=== PATIENT | female | born 1965 | race Caucasian/White ===

== ENCOUNTER → 2016-10-06 | Outpatient (CLI) | payer OTHER ==
[~2016-10-06] MED LIST: ALBUAER2 INH; FLVHFA110 INH; TRIA3AER NAE
--- NOTE | 2016-10-07 08:01 | MAMMOGRAPHY REPORT ---
BILATERAL DIGITAL SCREENING MAMMOGRAM TOMOSYNTHESIS WITH CAD: 10/06/2016 CLINICAL HISTORY: Routine screening. Patient has no complaints. TECHNIQUE: Breast tomosynthesis in addition to standard 2D mammography was performed. Current study was also evaluated with a Computer Aided Detection (CAD) system. COMPARISON: Comparison is made to exams dated: 10/03/2015 mammogram, 09/29/2014 mammogram, 08/03/2013 mamm ogram, 08/02/2012 mammogram, 07/15/2011 mammogram, and 07/11/2010 mammogram - [facility] BREAST COMPOSITION: The tissue of both breasts is heterogeneously dense, which may obscure small mas ses. FINDINGS: The parenchymal pattern is unchanged. No developing mass, architectural distortion or clus ter of suspicious microcalcifications is seen in either breast. IMPRESSION: ACR BI-RADS CATEGORY 2: BENIGN There is no mammographic evidence of malignancy. A 1 year screening mammogram is recommended. The pa tient will receive written notification of the results. Approximately 10% of breast cancers are not detected with mammography. A negative mammographic report should not delay biopsy if a clinically suggestive mass is present. Elizabeth Ordaz M.D. ay/:10/06/2016 15:34:43 Special Service Representative: Asha GALVEZ(Rahul)(Lia), [facility] letter sent: Normal 1/2 BI-RADS Code: ACR BI-RADS Category 2: Benign
== END | disposition home or self-care (01) ==
LOC: C.MAMM 10:04
PROVIDERS: ATTEND Obstetrics & Gynecology
DX: Z12.31 Encounter for screening mammogram for malignant neoplasm of breast (principal)

== ENCOUNTER → 2017-06-16 | Outpatient (CLI) | payer OTHER | END | disposition home or self-care (01) | LOC: C.PAPS 16:43 | PROVIDERS: ATTEND Obstetrics & Gynecology | DX: Z01.419 Encounter for gynecological examination (general) (routine) without abnormal findings (principal) ==

== ENCOUNTER 2017-12-13 04:56 | Emergency (ER) | payer OTHER ==
[~2017-12-13] VITALS: Ht 157.5 cm; Wt 52.9 kg
[2017-12-13 05:00] VITALS: TEMP 37.4; Ht 157.5 cm; Wt 52.9 kg
[2017-12-13] MEDS ORDERED: SODIUM CHLORIDE 0.9% 1000ML 1,000 ML IV STA (05:09)
[2017-12-13] MEDS ORDERED: KETOROLAC TROMETHAMINE 30 MG/ML VIAL IV STA (05:09)
[2017-12-13] MEDS ORDERED: LORAZEPAM 2 MG/ML 1 ML VIAL IV STA (05:09)
[2017-12-13 05:10] VITALS: O2SAT 99
[2017-12-13 05:31] LABS: BASO % 0.3 %; BASO ABS # 0.03 K/uL (0-0.2); EOS % 4.5 %; EOS ABS # 0.48 K/uL (0-0.5); HEMATOCRIT 42.3 % (37-47); HEMOGLOBIN 14.8 g/dL (12.0-16.0); IG# 0.05 K/uL (0.00-0.02); LYMPH % 36.6 %; LYMPH ABS # 3.93 K/uL (1.2-3.4); MEAN CORPUSCULAR HEMOGLOBIN 31.8 pg (25-34); MEAN PLATELET VOLUME 9.6 fL (7.4-10.4); MONO % 8.8 %; MONO ABS # 0.95 K/uL (0.11-0.59); NEUT % 49.3 %; PLATELET COUNT 295 K/uL (130-400); RED CELL DISTRIBUTION WIDTH CV 12.3 % (11.5-14.5); RED CELL DISTRIBUTION WIDTH SD 40.9 fL (36.4-46.3); WHITE BLOOD COUNT 10.74 K/uL (4.8-10.8)
[2017-12-13] MEDS ORDERED: OPTIRAY 320 IV PRN (05:45)
[2017-12-13] MEDS ORDERED: LOSA50TA6 PO (05:46)
[2017-12-13] MEDS ORDERED: CLR10 PO (05:47)
[2017-12-13] MEDS ORDERED: VNTHFA/IN INH (05:48)
[2017-12-13 05:56] LABS: ALBUMIN 3.6 gm/dl (3.4-5.0); ALKALINE PHOSPHATASE 71 U/L (45-117); ALT/SGPT 42 U/L (12-78); AST/SGOT 29 U/L (15-37); BLOOD UREA NITROGEN 14 mg/dl (7-18); CALCIUM 9.2 mg/dl (8.5-10.1); CARBON DIOXIDE 23 mmol/L (21-32); CREATININE 0.96 mg/dl (0.60-1.20); GLUCOSE 110 mg/dl (70-99); LIPASE 224 U/L (73-393); POTASSIUM 3.5 mmol/L (3.5-5.1); SODIUM 139 mmol/L (136-145)
[2017-12-13] MEDS ORDERED: CEFTRIAXONE SOD INJ 1 GM ADDVIAL IV STA (06:58)
[2017-12-13] MEDS ORDERED: AZITHROMYCIN 250 MG TAB PO STA (06:58)
--- NOTE | 2017-12-13 07:07 | EMERGENCY ROOM VISIT NOTE ---
History First contact with patient: 04:59 Chief Complaint: BACK PAIN Stated Complaint: SEVERE BACK PAIN History of Present Illness The patient is a 52 year old female who presents to the Emergency Room with complaints of severe sudden onset of left upper back pain described as aching, ranging in severity 8 out of 10 that feels like spasms. She states is hard to catch her breath. Patient just flew back from [facility]. She has been traveling recently. There is a family history of heart disease. No blood clots in the family. Patient denies anterior chest pain, abdominal pain, leg pain or swelling, urinary problems, injury to the area, flulike illness. No history of kidney stones. No history of blood clots. She is not on hormone replacement. She does not smoke. Patient states last week she was feeling fatigued with cold symptoms and went to urgent care. No known tick bites. Review of Systems An 10 system review of systems was completed with positives and pertinent negatives listed in the HPI. Past Medical/Surgical History Medical Problems: (1) Asthma (2) Intrauterine Neck surgery Social History Smoking Status: Never Smoker Marital Status: Housing Status: lives with family Occupation Status: other Current/Historical Medications Scheduled Loratadine (Claritin), 10 MG PO DAILY Losartan Potassium (Cozaar), 50 MG PO DAILY Scheduled PRN Albuterol Hfa (Ventolin Hfa), 2 PUFFS INH Q6H PRN for SOB/Wheezing Fluticasone Propionate (Flovent Hfa), 2 PUFFS INH BID PRN for Asthma Symptoms Physical Exam Vital Signs Date Time Temp Pulse Resp B/P (MAP) Pulse Ox O2 Delivery O2 Flow Rate FiO2 12/13/17 06:01 118 145/99 99 Room Air 12/13/17 05:56 113 99 12/13/17 05:41 120 21 100 Room Air 12/13/17 05:31 156/106 12/13/17 05:11 120 12/13/17 05:10 99 Room Air 12/13/17 05:10 Room Air 12/13/17 05:06 168/113 12/13/17 05:00 37.4 129 20 176/112 98 Room Air Physical Exam VITALS: Vitals are noted on the nurse's note and reviewed by myself. Vital signs hypertensive. GENERAL: White female anxious appearing, in no acute distress, nondiaphoretic, well-developed well-nourished. SKIN: The skin was without rashes, erythema, edema, or bruising. There is no tenting of the skin. Capillary reflex less than 2 seconds. HEAD: Normocephalic atraumatic. EARS: External auditory canals clear, tympanic membranes pearly shaw without erythema or effusion bilaterally. EYES: Pupils equal round and reactive to light and accommodation. Conjunctivae without injection, sclerae without icterus. Extraocular movements intact. NOSE: Patent, turbinates without inflammation or discharge. No sinus tenderness. MOUTH: Mucous membranes moist. Pharynx without erythema or exudate. Uvula midline. Airway patent. Tongue does not deviate. NECK: Supple without nuchal rigidity. No lymphadenopathy. No thyromegaly. Cervical spine is nontender. No JVD. HEART: Tachycardic rate and rhythm without murmurs gallops or rubs. LUNGS: Clear to auscultation bilaterally without wheezes, rales or rhonchi. No retractions or accessory muscle use. ABDOMEN: Positive bowel sounds x 4. Normal tympanic percussion. Soft, nontender, without masses or organomegaly. Tolentino sign negative. No guarding or rebound tenderness. No CVA tenderness MUSCULOSKELETAL: No muscle atrophy, erythema, or edema noted. No thoracic or lumbar tenderness on exam. NEURO: Patient was alert and oriented to person place and time. Normal sensation to light and sharp touch. No focal neurological deficits. Medical Decision & Procedures Laboratory Results 12/13/17 05:10 Red Blood Count 4.65, Mean Corpuscular Volume 91.0, Mean Corpuscular Hemoglobin 31.8, Mean Corpuscular Hemoglobin Concent 35.0, Mean Platelet Volume 9.6, Neutrophils (%) (Auto) 49.3, Lymphocytes (%) (Auto) 36.6, Monocytes (%) (Auto) 8.8, Eosinophils (%) (Auto) 4.5, Basophils (%) (Auto) 0.3, Neutrophils # (Auto) 5.30, Lymphocytes # (Auto) 3.93, Monocytes # (Auto) 0.95, Eosinophils # (Auto) 0.48, Basophils # (Auto) 0.03 12/13/17 05:10 Test 12/13/17 05:10 12/13/17 05:22 12/13/17 05:25 12/13/17 06:24 White Blood Count 10.74 K/uL (4.8-10.8) Red Blood Count 4.65 M/uL (4.2-5.4) Hemoglobin 14.8 g/dL (12.0-16.0) Hematocrit 42.3 % (37-47) Mean Corpuscular Volume 91.0 fL (80-100) Mean Corpuscular Hemoglobin 31.8 pg (25-34) Mean Corpuscular Hemoglobin Concent 35.0 g/dl (32-36) Platelet Count 295 K/uL (130-400) Mean Platelet Volume 9.6 fL (7.4-10.4) Neutrophils (%) (Auto) 49.3 % Lymphocytes (%) (Auto) 36.6 % Monocytes (%) (Auto) 8.8 % Eosinophils (%) (Auto) 4.5 % Basophils (%) (Auto) 0.3 % Neutrophils # (Auto) 5.30 K/uL (1.4-6.5) Lymphocytes # (Auto) 3.93 K/uL (1.2-3.4) Monocytes # (Auto) 0.95 K/uL (0.11-0.59) Eosinophils # (Auto) 0.48 K/uL (0-0.5) Basophils # (Auto) 0.03 K/uL (0-0.2) RDW Standard Deviation 40.9 fL (36.4-46.3) RDW Coefficient of Variation 12.3 % (11.5-14.5) Immature Granulocyte % (Auto) 0.5 % Immature Granulocyte # (Auto) 0.05 K/uL (0.00-0.02) Anion Gap 11.0 mmol/L (3-11) Est Creatinine Clear Calc Drug Dose 54.9 ml/min Estimated GFR () 79.4 Estimated GFR (Non- 68.5 BUN/Creatinine Ratio 14.5 (10-20) Calcium Level 9.2 mg/dl (8.5-10.1) Total Bilirubin 0.4 mg/dl (0.2-1) Aspartate Amino Transf (AST/SGOT) 29 U/L (15-37) Alanine Aminotransferase (ALT/SGPT) 42 U/L (12-78) Alkaline Phosphatase 71 U/L (45-117) Total Creatine Kinase 57 U/L (26-192) Troponin I < 0.015 ng/ml (0-0.045) Total Protein 8.0 gm/dl (6.4-8.2) Albumin 3.6 gm/dl (3.4-5.0) Lipase 224 U/L (73-393) Bedside D-Dimer > 450 ng/mlFEU (0-450) Bedside Troponin I < 0.030 ng/ml (0-0.045) Urine Color YELLOW Urine Appearance CLEAR (CLEAR) Urine pH 5.0 (4.5-7.5) Urine Specific [place] 1.012 (1.000-1.030) Urine Protein NEG (NEG) Urine Glucose (UA) NEG (NEG) Urine Ketones NEG (NEG) Urine Occult Blood NEG (NEG) Urine Nitrite NEG (NEG) Urine Bilirubin NEG (NEG) Urine Urobilinogen NEG (NEG) Urine Leukocyte Esterase NEG (NEG) Medications Administered Medications (Trade) Dose Ordered Sig/Sriram Route Start Time Stop Time Status Last Admin Dose Admin Ketorolac Tromethamine (Toradol Inj) 10 mg NOW STAT IV 12/13/17 05:09 12/13/17 05:12 DC 12/13/17 05:26 10 MG Lorazepam (Ativan Inj) 0.5 mg NOW STAT IV 12/13/17 05:09 12/13/17 05:12 DC 12/13/17 05:25 0.5 MG Sodium Chloride 1,000 ml @ 999 mls/hr Q1H1M STAT IV 12/13/17 05:09 12/13/17 06:09 DC 12/13/17 05:23 999 MLS/HR ED Course Prior records/ancillary studies reviewed. Triage Nursing notes reviewed. Additional history obtained from family. The patient's history was concerning for left upper back pain. Differential diagnosis: Etiologies such as musculoskeletal, cardiac, pulmonary, PE, disc herniation, fracture, aortic disease, metastatic disease, cord compression, discitis, infection, renal colic, gastrointestinal, acute exacerbation of chronic back pain, sciatica, cauda equina, as well as others were entertained. Physical findings: As above. No focal neurologic findings noted. ER treatment provided: Toradol, Ativan, IV fluids On reassessment the patient felt better. Diagnostics interpreted by me: EKG: Normal sinus, occasional PVC, no acute ST-T wave changes, rate of 125. Impression sinus tachycardia with occasional PVC interpreted by myself I think arrhythmia is unlikely. EKG shows normal sinus rhythm with no interval abnormalities such as QT prolongation or WPW. There are no findings to suggest Brugada syndrome. Cardiac monitoring in the emergency department reveals no tachycardic or bradycardic dysrhythmia. Hypertrophic cardiomyopathy was considered but there are no clear historical elements pointing toward this. EKG is not suggestive. The QRS voltage is not extremely large and there are no suggestive Q waves. The labs revealed elevated d-dimer. Negative troponin. Imaging studies: Chest x-ray with no acute consolidation, pneumothorax free of my interpretation CTA CHEST: Breathing motion artifact limits evaluation of small peripheral vessels. No central PE. 3 cm area of consolidation in the left lower lobe with surrounding patchy airspace disease. Likely represents pneumonia. Recommend follow-up to exclude malignancy. Small and mildly enlarged mediastinal/left hilar nodes Radiologist: Antonio Garcia M.D. CURB Score: Confusion: no Urea (BUN > 19): no Respiratory Rate (>30/min): no Blood Pressure: Diastolic <60 or Systolic <90 no Age (>= 65) no Total (0-1 low risk, 2-5 high risk): no HEART SCORE: Hx: high/mod/low suspicion: 0 ECG: ST depression/nonspecific changes/normal: 0 Age: Greater than 65/45-64/less than 45: 1 Risk factors: (Hypertension, hyperlipidemia, diabetes, coronary disease, tobacco use, cocaine use): 1 Troponin: Greater than 2 times normal limits/1-2 times normal limits/normal: 0 Total: 2 Per chart review, patient's heart rate is always been elevated. She is advised to follow-up with family care doctor for this. Patient states her heart rate normally runs around 100. This appears to be consistent with left upper back pain with pneumonia on CT scan. Patient was started on antibiotics. Curb score was low. Heart score was low. Patient was neurovascularly and neurologically intact. She is well- appearing. There was no trauma. She was ambulating without difficulties. . Patient was advised to follow-up family care in a few days or here in the ER sooner for chest pain, difficulty breathing, fevers, worsening signs or symptoms or as needed. The patient's physical examination and detailed history did not reveal any red flags for back pain such as those listed in the differential diagnosis. Therefore advanced diagnostics and consultations were felt to be unwarranted. By the evaluation outlined above emergent etiologies such as fracture, aortic disease, metastatic disease, renal colic, gastrointestinal, cord compression, cauda equina, as well as others were deemed relatively unlikely. The pt informed about the findings as listed above. All questions were answered and pleased with the treatment. Return instructions were outlined and the patient was discharged in stable condition. Outpatient prescription management: martha london Referral: The patient was referred back to primary care physician for follow-up in 2 to 3 days for a recheck of the current condition. Case reviewed with my attending The chart was completed utilizing [employer] Speech voice recognition software. Grammatical errors, random word insertions, pronoun errors, and incomplete sentences are an occassional consequence of this system due to software limitations, ambient noise, and hardware issues. Any formal questions or concerns about the content, text, or information contained within the body of this dictation should be directly addressed to the physician logging assistant for clarification. Medical Decision As above Medication Reconcilliation Current Medication List: was personally reviewed by me Blood Pressure Screening Patient's blood pressure: Elevated blood pressure Blood pressure disposition: Referred to PCP Impression Primary Impression: Left lower lobe pneumonia Additional Impression: Tachycardia Departure Information Dispostion Home / Self-Care Condition GOOD Referrals Brandon Martinez III, M.D. (PCP) Patient Instructions My [facility] Additional Instructions DO NOT drive, drink alcohol, operate machinery, or perform dangerous activities today. You were given medications in the ER that can affect your ability to safely function or operate a vehicle. Your heart rate is chronically elevated in the ER per chart review. See your family care doctor for further workup for this. Repeat chest x-ray in a few weeks for resolution of infection. The family doctor can do this. Azithromycin(Zithromax) 250mg: Take one a day for 4 additional days. All antibiotics can cause diarrhea. If this occurs and you feel worse or it does not resolve in 1-2 days follow up with your doctor or return to the Emergency Department as this could be signs of serious underlying problems. Any medication can cause an allergic reaction, stop the pills immediately and return to the ER for rash, hives, breathing difficulties, or swelling. and Amoxicillin-clavulanate XR: 2 g twice daily for 10 days for your infection. All antibiotics can cause diarrhea. If this occurs and you feel worse or it does not resolve in 1-2 days follow up with your doctor or return to the Emergency Department as this could be signs of serious underlying problems. Any medication can cause an allergic reaction, stop the pills immediately and return to the ER for rash, hives, breathing difficulties, or swelling. Acetaminophen(Tylenol) may be used for fever or pain. Use 1000mg every six hours as needed. Avoid using more than 3000mg in a 24 hour period. AND/OR Ibuprofen(Motrin, Advil) may be used for fever or pain. Use 400mg every six hours as needed. Take with food. Avoid using more than 1600mg in a 24 hour period. Do not use 1600mg per day for more than three consecutive days without physician direction. Prolonged inappropriate use can lead to stomach upset or ulcers. Controlling your fever with Tylenol and Ibuprofen as above will make you feel better. Rest and drink plenty of fluids. Avoid strenuous activity until your symptoms resolve and your breathing returns to normal. Continue current medications. Return to the ER for chest pain, difficulty breathing, persistent fevers, vomiting, worsening of your condition, or as needed. Follow-up with family care in 2-3 days. Problem Qualifiers Primary Impression: Left lower lobe pneumonia Pneumonia type: due to unspecified organism Qualified Codes: J18.1 - Lobar pneumonia, unspecified organism
[2017-12-13] MEDS ORDERED: AZIT250T PO (07:10)
[2017-12-13] MEDS ORDERED: AMOX500C3 PO (07:10)
--- NOTE | 2017-12-13 07:17 | DIAGNOSTIC IMAGING REPORT ---
CT ANGIOGRAPHY OF THE CHEST, PULMONARY EMBOLUS PROTOCOL CLINICAL HISTORY: Left upper back pain. Recent travel. Elevated d-dimer. COMPARISON STUDY: Chest radiograph April 14, 2014 and December 13, 2017. TECHNIQUE: Following IV administration of 79 mL of Optiray-320, helical axial images of the chest were obtained utilizing the pulmonary embolus protocol. Maximal intensity projections and sagittal and coronal reformats were viewed on an independent 3D workstation. IV contrast was administered without complication. A dose lowering technique was utilized adhering to the principles of ALARA. CT DOSE: 174.91 mGy.cm FINDINGS: No pulmonary emboli are identified although segmental and subsegmental pulmonary arteries are suboptimally assessed due to respiratory motion artifact. There is no pneumothorax. There is no evidence for thoracic aortic dissection. A trace left pleural effusion is noted. Note is made of a 4.2 cm focus of consolidation within the left lower lobe. There is no cavitation. Central airways are patent. Bony thorax and upper abdomen are unremarkable. IMPRESSION: 1. No pulmonary emboli identified although segmental and subsegmental pulmonary arteries suboptimally assessed due to respiratory motion. 2. 4.2 cm focus of consolidation within left lower lobe which is highly suggestive of pneumonia. A follow-up chest CT in one month to ensure resolution is recommended. Trace left pleural effusion. Electronically signed by: Chandan Dsouza M.D. 12/13/2017 7:15 AM Dictated Date/Time: 12/13/2017 7:10 AM
--- NOTE | 2017-12-13 07:33 | DIAGNOSTIC IMAGING REPORT ---
CHEST ONE VIEW PORTABLE CLINICAL HISTORY: Chest pain. Severe back pain. COMPARISON STUDY: Chest radiograph April 14, 2014. FINDINGS: Mild left lower lung opacity is present. There is no pneumothorax or pleural effusion. Cardiac size is normal. Mediastinal contours are normal. Postoperative findings within the cervical spine are noted. IMPRESSION: Mild left lower lung opacity which may reflect pneumonia or atelectasis. Radiographic follow-up to ensure resolution is recommended. Electronically signed by: Chandan Dsouza M.D. 12/13/2017 7:32 AM Dictated Date/Time: 12/13/2017 7:31 AM
[2017-12-13 07:38] VITALS: BP 138/92; PULSE 119; O2SAT 100
== END 2017-12-13 07:39 | disposition home or self-care (01) ==
LOC: C.EDB 04:57 → C.EDA 07:39
DX: J18.1 Lobar pneumonia, unspecified organism (principal); R00.0 Tachycardia, unspecified